=== PATIENT | male | born 1985 | race Caucasian/White ===

== ENCOUNTER 2024-08-01 09:14 | Observation (INO) | payer OTHER, SELFPAY ==
[2024-08-01] VITALS (42 sets, daily range): BP systolic 106–175; BP diastolic 72–139; PULSE 109–155; RESP 10–37; TEMP 36.3; O2SAT 89–96
--- NOTE | 2024-08-01 09:15 | RT.EKG_ITS ---
APPROVED REPORT Exam: Resting ECG Reason for Exam: Tachy Patient Location: E HR:137 bpm ECG Measurements Heart Rate 137 AXIS NM 140 P 57 QRSd 102 QRS 6 QT 301 T 39 QTc 454 Conclusion Sinus tachycardia...rate> 99
--- NOTE | 2024-08-01 09:15 | DI.CT_ITS ---
Exam(s) CT HEAD CERVICAL SPINE WO EXAM: CT HEAD CERVICAL SPINE WO CLINICAL HISTORY: trauma; fall 14 ft ladder-back/chst/abd/neck pain. TECHNIQUE: Imaging Protocol: Axial computed tomography images with coronal and sagittal reformatted images were created and reviewed COMPARISON: No exams were available for comparison FINDINGS: CT Head: Ventricles and Extra axial spaces: Normal in size and morphology for the patient's age. Hemorrhage: None. Cerebral parenchyma: No evidence of an acute territorial infarct or mass effect. Midline shift: None. Brainstem/Cerebellum: Normal. Calvarium: Normal. Visualized Paranasal sinuses/Mastoids: Clear. Soft Tissues: Unremarkable. CT Cervical Spine: There is patient motion artifact. Bones: No acute fracture or subluxation. There is an acute nondisplaced fracture of the posterior asp ect of the right 1st rib. There is a mildly displaced fracture of the posterior aspect of the right 2nd rib. There is a nondisplaced fracture the posterior aspect of the left 2nd rib. There is mild r eversal of the normal cervical lordosis. This may be due to muscle spasm. Soft Tissues: Unremarkable. Lung Apices: Clear. IMPRESSION: 1. No acute intracranial process. 2. The examination is limited due to patient motion artifact. 3. Fractures involving the right 1st and 2nd ribs and the left 2nd rib. 4. Within the limits of the examination, no acute fracture or subluxation in the cervical spine. RADIATION DOSE DELIVERED: 1,389.99mGy.cm Total DLP DATA REPOSITORY: All CT scans at this facility are submitted to the National Radiology Data Registry (NRDR) Dose Index Registry (DIR) with the [employer] (ACR). RADIATION OPTIMIZATION: All CT scans at this facility use at least one of these dose optimization te chniques: automated exposure control; mA and/or kV adjustment per patient size (includes targeted exa ms where dose is matched to clinical indication); or iterative reconstruction.
--- NOTE | 2024-08-01 09:15 | DI.CT_ITS ---
Exam(s) CT CHEST/ABD/PEL W CT THORACIC LUMBAR SPINE REC EXAM: CT CHEST/ABD/PEL W CLINICAL HISTORY: trauma; fall 14 ft ladder-back/chst/abd/neck pain TECHNIQUE: Imaging Protocol: Axial computed tomography images with coronal and sagittal reformatted images were created and reviewed. Lung Computer Aided Detection (CAD) was utilized. CONTRAST MATERIAL: Intravenous: Omnipaque 350 contrast volume:100 mL Oral: No COMPARISON: CT CT THORACIC LUMBAR SPINE REC from 08/01/2024 FINDINGS: CHEST: Tracheobronchial tree: Patent where visualized. No evidence of bronchiectasis. Pulmonary parenchyma: No consolidation or dominant measurable mass. No architectural distortion. Visualized thyroid gland: Unremarkable. Mediastinum and Adeline: No dominant adenopathy or fluid collection. The esophagus is unremarkable. Pleura: No pneumothorax. No right pleural effusion. There is a tiny left pleural effusion. Heart: The heart is not dilated. No coronary artery calcifications are seen. No pericardial effusion. Pulmonary arteries: Due to the timing of the bolus, there is suboptimal opacification of the pulmonar y arteries. No large central pulmonary embolism is seen. Aorta: Thoracic aorta non-dilated. Lymph nodes: Within normal limits. Soft tissues: Gynecomastia bilaterally. Bones:There is a nondisplaced fracture of the posterior aspect of the right 1st rib. There are mildly displaced fracture of the posterior aspects of the right 2nd and 3rd ribs. There is a possible nondi splaced fracture involving the posterior aspect of the right 4th rib. There are old healed right 7th and 8th rib fracture deformities. There is a nondisplaced fracture involving the posterior aspect of the left 3rd 4th and 5th ribs. There is a subacute fracture of the posterior aspect of the left 11th rib. CT thoracic spine recons: No acute fracture or subluxation is seen in the thoracic spine. CT lumbar spine recons: No acute fracture or subluxation is seen in the lumbar spine. ABDOMEN: Liver: Normal density. No measurable mass. Portal, Superior Mesenteric, and Splenic Veins: Unremarkable. Gallbladder and Biliary Tract: No radiodense calculus or dilation. Pancreas: Normal density, no abnormal calcifications or inflammatory process. Spleen: Normal. Adrenals: No masses seen. Kidneys: Normal size, contour and axis. No radiodense stones or obstructive uropathy. No masses seen. Abdominal Aorta: Abdominal portion non-dilated. Bowel: No obstruction or bowel wall thickening. Appendix is unremarkable. Peritoneal Cavity: No ascites, collection or mesenteric inflammatory response. No free air. Lymph Nodes: Within normal limits. Bones: Within normal limits for the patient's age. Soft Tissues: There is a small fat containing right inguinal hernia. There is infiltration of the sof t tissues in the left flank likely reflecting a contusion. PELVIS: Bladder: Symmetric distention, no gross wall thickening. Reproductive Organs: Unremarkable as visualized. Lymph Nodes: Within normal limits. Bones: Within normal limits. IMPRESSION: 1. Bilateral rib fractures. 2. No pneumothorax. 3. Tiny left pleural effusion. 4. No acute fracture or subluxation is seen in the thoracic or lumbar spine. 5. No evidence of abdominal or pelvic organ injury. 6. Small subcutaneous soft tissue confusion overlying the left flank. RADIATION DOSE DELIVERED: 1,442.41mGy.cm Total DLP DATA REPOSITORY: All CT scans at this facility are submitted to the National Radiology Data Registry (NRDR) Dose Index Registry (DIR) with the [employer] (ACR). RADIATION OPTIMIZATION: All CT scans at this facility use at least one of these dose optimization te chniques: automated exposure control; mA and/or kV adjustment per patient size (includes targeted exa ms where dose is matched to clinical indication); or iterative reconstruction.
--- NOTE | 2024-08-01 09:39 | ED.GENADUL_ITS ---
Discharge Plan Disposition Patient Disposition: Admit to [facility] Condition: Stable Discharge Details Clinical Impression: Multiple closed fractures of ribs of both sides Admit Date/Time: 08/01/24 14:17 Admit Provider: Nghia Quach Attending Provider: Nghia Quach Primary Care Provider: None,None ED Provider: Fredy Manzano Discharge Data Discharge Date/Time-TO BE ENTERED AT DEPARTURE: 08/01/24 15:21 HPI <CHRISTIAN Phelan - Last Filed: 08/01/24 16:07> General Date/Time Provider Initiated Documentation: 08/01/24 09:22 . HPI Narrative: 39 year-old male presents to ED today by POV/ambulating with a chief complaint of fall from 14 foot ladder while at work to uneven crushed stone to his back, with onset just prior to arrival. Quality described as lateral neck pain, back pain, ribcage pain, upper abdominal pain, no radiation to known LOC, nausea/vomiting, bleeding, numbness to any extremities- patient walked in, refused C-collar, and walked to CT. Severity is described as 7/10. Palliating factors include nothing specific attempted. Provoking factors include certain movements. Patient not anticoagulated. Related Data Home Medications ?Medication ?Instructions ?Recorded ?Confirmed methadone 10 mg/5 mL oral solution 185 mg PO DAILY 07/2108/01/24 acetaminophen 500 mg tablet 1,000 mg (2 x 500 mg) PO Q ID #0 08/02/24 tabs albuterol sulfate 90 mcg/actuation 2 puff inhalation Q 4H PRN PRN #1 08/02/24 aerosol inhaler (Ventolin HFA) inh cyclobenzaprine 10 mg tablet 10 mg PO TID PRN PRN #30 tabs 08/02/24 naproxen 500 mg tablet 500 mg PO BID #50 tabs 08/02 oxycodone 10 mg tablet 20 mg (2 x 10 mg) PO Q4H PRN PRN 08/02/24 #20 tabs sennosides 8.6 mg-docusate sodium 1 tab PO BID #60 tab s 08/02/24 50 mg tablet (Colace 2-In-1) Previous Rx's ?Medication ?Instructions ?Recorded acetaminophen 500 mg tablet 1,000 mg (2 x 500 mg) PO Q ID #0 08/02/24 tabs albuterol sulfate 90 mcg/actuation 2 puff inhalation Q 4H PRN PRN #1 08/02/24 aerosol inhaler (Ventolin HFA) inh cyclobenzaprine 10 mg tablet 10 mg PO TID PRN PRN #30 tabs 08/02/24 naproxen 500 mg tablet 500 mg PO BID #50 tabs 08/02 oxycodone 10 mg tablet 20 mg (2 x 10 mg) PO Q4H PRN PRN 08/02/24 #20 tabs sennosides 8.6 mg-docusate sodium 1 tab PO BID #60 tab s 08/02/24 50 mg tablet (Colace 2-In-1) Allergies Allergy/AdvReac Type Severity Reaction Status Date / Time No Known Allergies Allergy Unverified 08/01/24 09:20 General Stated Complaint: Trauma RUBY: 2 Review of Systems <CHRISTIAN Phelan - Last Filed: 08/01/24 16:07> All systems reviewed & are unremarkable except as noted in HPI and below Exam <CHRISTIAN Phelan - Last Filed: 08/01/24 16:07> Narrative Exam Narrative: GENERAL APPEARANCE: Well-nourished, non-toxic, awake and alert, moderate acute distress. SKIN: Warm, pink, diaphoretic, intact, without rashes/lesions/ulcerations. HEAD: Normocephalic, atraumatic- no Juarez's sign or periorbital ecchymosis, normal hair distribution for gender/age. EYES: Normal conjunctiva, no exudates on lids/lashes. ENT: Nares patent, no circumoral cyanosis, no facial swelling NECK: Supple, trachea midline, painless cervical ROM, no midline cervical vertebral tenderness/crepitus, L lateral tenderness in trapezius muscles. LUNGS/CHEST: Lungs CTA bilaterally- no focally diminshed or absent lung sounds, non-labored respirations, normal A/P diameter, symmetrical expansion, no chest wall deformity, no flail segment or paradoxical motion- diffuse severe tenderness to ribcage bilatearlly with crepitus in bilateral upper ribs posteriorly HEART (CV/PV): Regular rate and rhythm without murmur, no peripheral edema, no JVD. ABDOMEN: Soft, non-distended, no guarding, epigastric tenderness, no ecchymosis/rigidity. MSK: Normal ROM, no swelling/deformity to bilateral UEs or LEs, moving all extremities without weakness, no cyanosis, spine midline with tenderness without crepitus/step-offs, focally more paraspinal in upper thoracic bilaterally. NEURO: Mental Status AAOx4 - alert to person, place, time, events No facial droop, no forehead involvement, no cerebellar signs with FNF/heel-mccormick Motor: No focal weakness - strength 5/5 in bilateral UEs and LEs, proximal and distal, symmetric. Sensory: sensation intact to light touch globally. Gait normal: patient ambulated without ataxia into ED room. PSYCH: euthymic, cooperative, pleasant, appropriate speech Course <CHRISTIAN Phelan - Last Filed: 08/01/24 16:07> Vital Signs Vital signs: Vital Signs Pulse 154 H 08/01/24 09:17 Respiratory Rate 20 08/01/24 09:17 Blood Pressure 159/103 H 08/01/24 09:17 Pulse Oximetry 94 08/01/24 09:17 Pulse 154 H 08/01/24 09:17 Respiratory Rate 20 08/01/24 09:17 Blood Pressure 159/103 H 08/01/24 09:17 Blood Pressure Position Sitting 08/01/24 09:17 Pulse Oximetry 94 08/01/24 09:17 Oxygen Delivery Method Room Air 08/01/24 09:17 Oxygen Flow Rate 0 08/01/24 09:17 Pain Level 7 08/01/24 09:17 Medical Decision Making <CHRISTIAN Phelan - Last Filed: 08/01/24 16:07> This dictation utilizes [id number] dictation software and may contain unedited grammatical errors. 39 year-old male presents to ED today by POV/ambulating with a chief complaint of fall from 14 foot ladder while at work to uneven crushed stone to his back, with onset just prior to arrival. Quality described as lateral neck pain, back pain, ribcage pain, upper abdominal pain, no radiation to known LOC, nausea/vomiting, bleeding, numbness to any extremities- patient walked in, refused C-collar, and walked to CT. Severity is described as 09/05. Palliating factors include nothing specific attempted. Provoking factors include certain movements.. Patients' medical history: Daily methadone patient. Family and social history: Denies current active drug use, denies alcohol use, works in construction. Pertinent exam findings / vital signs include [ ]. Differential / pathologies of concern include [ ]. Diagnostic studies of: -CBC, CMP, lipase, serial troponins, PT/PTT, lactate, type and screen, EKG, CT head, CT C/T/L-spine, CT chest abdomen pelvis. -CT shows 4 R rib fractures - 1st, 2nd, 3rd, and likely 4th- 2nd and 3rd being displaced. L side ribcage shows 4 contigious rib fractures (2nd, 3rd, 4th, 5th - all non-displaced), and 11th rib fx nondisplaced, with small L pleural effusion- likely hemothorax. -Labs show WBCs 26, likely secondary to trauma, lactate elevated secondary to trauma Interventions of: -1g IV Tylenol, 1mg hydromorphone IVP x2 Q2hr at this point (1105), patient is a high-dose daily methadone patient, will like need substantial complex pain control. -Consulted with Dr. Fernández, he will manage pulmonary complicatons, acknowledge small effusion likely hemothorax, may need repeat short interval imaging. -Consulted with Dr. Quach of hospitalist service for admission- accepted at 1130. ED Course/Assessment/Plan: 39-year-old male had a 14 foot fall through his back landing on uneven crushed stone at a construction site, he fell off a ladder. He has significant chest and upper abdominal pain and back pain, he was tacky to 150s on arrival but walking and refusing c-collar despite having lateral left neck pain, he ambulated to [place] and back. His CT scan shows multiple bilateral rib fractures as described above and are likely small left hemothorax needing short interval imaging follow-up. I spoke with the surgeon on-call as well as hospitalist and they have admitted to [facility] for pain control and monitoring, he received a gram of Tylenol and 2 mg of hydromorphone so far, I did hold ketorolac while awaiting CT scan results as to not increase bleeding risk, this could be added from the inpatient setting. Findings not consistent with tension pneumo/hemothorax, pericardial effusion, ICH, vertebral fractures. Disposition of Multiple closed fractures of ribs of both sides. Patient verbalized understanding of the plan and return to ED criteria and engaged in shared decision making. Medical Records Medical records reviewed: Yes I reviewed the patient's medical records. Imaging Data Radiologic Study: Attestation: I personally reviewed and interpreted this imaging study as follows: Imaging: CT Scan Radiologist's impression: EXAM: CT HEAD CERVICAL SPINE WO CLINICAL HISTORY: trauma; fall 14 ft ladder-back/chst/abd/neck pain. TECHNIQUE: Imaging Protocol: Axial computed tomography images with coronal and sagittal reformatted images were created and reviewed COMPARISON: No exams were available for comparison FINDINGS: CT Head: Ventricles and Extra axial spaces: Normal in size and morphology for the patient's age. Hemorrhage: None. Cerebral parenchyma: No evidence of an acute territorial infarct or mass effect. Midline shift: None. Brainstem/Cerebellum: Normal. Calvarium: Normal. Visualized Paranasal sinuses/Mastoids: Clear. Soft Tissues: Unremarkable. CT Cervical Spine: There is patient motion artifact. Bones: No acute fracture or subluxation. There is an acute nondisplaced fracture of the posterior aspect of the right 1st rib. There is a mildly displaced fracture of the posterior aspect of the right 2nd rib. There is a nondisplaced fracture the posterior aspect of the left 2nd rib. There is mild reversal of the normal cervical lordosis. This may be due to muscle spasm. Soft Tissues: Unremarkable. Lung Apices: Clear. IMPRESSION: 1. No acute intracranial process. 2. The examination is limited due to patient motion artifact. 3. Fractures involving the right 1st and 2nd ribs and the left 2nd rib. 4. Within the limits of the examination, no acute fracture or subluxation in the cervical spine. Radiologic Study #2: Attestation: I personally reviewed and interpreted this imaging study as follows: Imaging: CT Scan Radiologist's impression: EXAM: CT CHEST/ABD/PEL W CLINICAL HISTORY: trauma; fall 14 ft ladder-back/chst/abd/neck pain TECHNIQUE: Imaging Protocol: Axial computed tomography images with coronal and sagittal reformatted images were created and reviewed. Lung Computer Aided Detection (CAD) was utilized. CONTRAST MATERIAL: Intravenous: Omnipaque 350 contrast volume:100 mL Oral: No COMPARISON: CT CT THORACIC LUMBAR SPINE REC from 08/01/2024 FINDINGS: CHEST: Tracheobronchial tree: Patent where visualized. No evidence of bronchiectasis. Pulmonary parenchyma: No consolidation or dominant measurable mass. No architectural distortion. Visualized thyroid gland: Unremarkable. Mediastinum and Daeline: No dominant adenopathy or fluid collection. The esophagus is unremarkable. Pleura: No pneumothorax. No right pleural effusion. There is a tiny left pleural effusion. Heart: The heart is not dilated. No coronary artery calcifications are seen. No pericardial effusion. Pulmonary arteries: Due to the timing of the bolus, there is suboptimal opacification of the pulmonary arteries. No large central pulmonary embolism is seen. Aorta: Thoracic aorta non-dilated. Lymph nodes: Within normal limits. Soft tissues: Gynecomastia bilaterally. Bones:There is a nondisplaced fracture of the posterior aspect of the right 1st rib. There are mildly displaced fracture of the posterior aspects of the right 2nd and 3rd ribs. There is a possible nondisplaced fracture involving the posterior aspect of the right 4th rib. There are old healed right 7th and 8th rib fracture deformities. There is a nondisplaced fracture involving the posterior aspect of the left 3rd 4th and 5th ribs. There is a subacute fracture of the posterior aspect of the left 11th rib. CT thoracic spine recons: No acute fracture or subluxation is seen in the thoracic spine. CT lumbar spine recons: No acute fracture or subluxation is seen in the lumbar spine. ABDOMEN: Liver: Normal density. No measurable mass. Portal, Superior Mesenteric, and Splenic Veins: Unremarkable. Gallbladder and Biliary Tract: No radiodense calculus or dilation. Pancreas: Normal density, no abnormal calcifications or inflammatory process. Spleen: Normal. Adrenals: No masses seen. Kidneys: Normal size, contour and axis. No radiodense stones or obstructive uropathy. No masses seen. Abdominal Aorta: Abdominal portion non-dilated. Bowel: No obstruction or bowel wall thickening. Appendix is unremarkable. Peritoneal Cavity: No ascites, collection or mesenteric inflammatory response. No free air. Lymph Nodes: Within normal limits. Bones: Within normal limits for the patient's age. Soft Tissues: There is a small fat containing right inguinal hernia. There is infiltration of the soft tissues in the left flank likely reflecting a contusion. PELVIS: Bladder: Symmetric distention, no gross wall thickening. Reproductive Organs: Unremarkable as visualized. Lymph Nodes: Within normal limits. Bones: Within normal limits. IMPRESSION: 1. Bilateral rib fractures. 2. No pneumothorax. 3. Tiny left pleural effusion. 4. No acute fracture or subluxation is seen in the thoracic or lumbar spine. 5. No evidence of abdominal or pelvic organ injury. 6. Small subcutaneous soft tissue confusion overlying the left flank. Lab Data Lab results reviewed: Yes I reviewed the patient's lab results. Labs: Laboratory Tests Range/Units 08/01/24 08/01/24 09:30 10:30 WBC (4.4-10.8) 10^3/uL 26.24 H* RBC (4.36-5.78) 10^6/uL 5.17 Hgb (13.5-17.5) g/dL 15.7 Hct (40.0-50.0) % 47.4 MCV (80-95) fL 92 MCH (27.0-33.0) pg 30.4 MCHC (32.0-36.0) % 33.1 RDW (11.8-14.1) % 12.9 Plt Count (130-400) 10^3/uL 324 MPV (8.0-11.0) fL 10.0 Immature Gran % % 1.5 Neutrophils % % 82.5 Lymphocytes % % 8.6 Monocytes % % 6.7 Eosinophils % % 0.2 Basophils % % 0.5 Nucleated RBC % (0.0-0.3) % 0.0 Absolute Neutrophils (1.2-6.7) 10^3/uL 21.65 H Absolute Lymphocytes (1.2-3.4) 10^3/uL 2.26 Absolute Monocytes (0.1-0.8) 10^3/uL 1.76 H Absolute Eosinophils (0.0-0.7) 10^3/uL 0.05 Absolute Basophils (0.0-0.2) 10^3/uL 0.13 RBC Morphology Normal PT (9.1-11.1) sec 10.8 INR (0.9-1.1) 1.1 APTT (20.6-30.2) sec 24.1 VBG Lactate (<or=2.0) mmol/L 3.3 H* Sodium (136-145) mmol/L 136 Potassium (3.5-5.1) mmol/L 4.0 Chloride (98-107) mmol/L 97 L Carbon Dioxide (21.0-32.0) mmol/L 28.8 Anion Gap (3-11) mmol/L 10.2 BUN (7-18) mg/dL 8 Creatinine (0.70-1.30) mg/dL 1.2 Est GFR (CKD-EPI 2020) (mL/min/1.73m2) 77.92 Glucose (74-106) mg/dL 147 H Calcium (8.5-10.1) mg/dL 9.4 Total Bilirubin (0.2-1.0) mg/dL 0.5 AST (15-37) U/L 45 H ALT (16-63) U/L 35 Alkaline Phosphatase (46-116) U/L 155 H Troponin I (<or=76) ng/L 8 8 Total Protein (6.4-8.2) g/dL 9.3 H Albumin (3.4-5.0) g/dL 3.9 Lipase (<78) U/L 31 ABO/Rh A Positive Antibody Screen NEGATIVE <Rd Cleveland MD - Last Filed: 08/09/24 07:34> Date: 08/01/24 Time: 12:46 Note: I evaluated the patient with CHRISTIAN Manzano. I agree with treatment plan as documented. Plan to hospitalize for treatment of rib fractures and small hemothorax. Surgery has been consulted and has evaluated the patient. Patient to be admitted to the hospitalist service. PFSH <CHRISTIAN Phelan - Last Filed: 08/01/24 16:07> All Active Problems (Updated 08/03/24 @ 00:00 by ELVI TORIBIO) Asthma (Chronic) Wrist pain, left (Acute) Pleural effusion (Acute) Smoker (Acute) Opioid use disorder, severe, on maintenance therapy (Acute) Multiple closed fractures of ribs of both sides (Acute) Medical History (Updated 08/03/24 @ 00:00 by ELVI TORIBIO) BMI 40.0-44.9, adult Surgical History (Updated 08/01/24 @ 18:12 by Nghia Quach) H/O umbilical hernia repair Social History (Updated 08/01/24 @ 18:13 by Nghia Quach) Smoking/Tobacco Use Status: Current every day Tobacco Type: cigarettes and e- cigarettes Tobacco: How many years used: 28 Smoking risk assessment performed?: Yes Alcohol Intake: current Alcohol Intake frequency: a few times a month Drug use: Current Sobriety Substance use type: former substance user Details: on Methadone Housing: apartment Do you feel safe at home: Yes Do you feel safe in your relationship?: Yes Additional Social history: Lives with mom/step dad, GF at times. Works at [employer]. Formerly incarcerated.
[2024-08-01 09:40] LABS: Lactate 3.3 mmol/L (<or=2.0)
[2024-08-01 09:42] LABS: Absolute Monocyte Count 1.76 10^3/uL (0.1-0.8); Basophils % 0.5 %; Eosinophils % 0.2 %; HCT 47.4 % (40.0-50.0); HGB 15.7 g/dL (13.5-17.5); Immature Grans % 1.5 %; Lymphocytes % 8.6 %; MCH 30.4 pg (27.0-33.0); MCHC 33.1 % (32.0-36.0); MCV 92 fL (80-95); Monocytes % 6.7 %; Neutrophils % 82.5 %; Platelet Count 324 10^3/uL (130-400); RBC 5.17 10^6/uL (4.36-5.78); RDW 12.9 % (11.8-14.1)
[2024-08-01 09:47] LABS: Absolute Basophil Count 0.13 10^3/uL (0.0-0.2); Absolute Eosinophil Count 0.05 10^3/uL (0.0-0.7); Absolute Lymphocyte Count 2.26 10^3/uL (1.2-3.4); Absolute Neutrophil Count 21.65 10^3/uL (1.2-6.7)
[2024-08-01 09:48] LABS: WBC 26.24 10^3/uL (4.4-10.8)
[2024-08-01] MEDS: Normal Saline - Diluent 50 ML VIAL IJ (09:58)
[2024-08-01 10:00] LABS: INR 1.1 (0.9-1.1); PTT Activated 24.1 sec (20.6-30.2); Prothrombin Time 10.8 sec (9.1-11.1)
[2024-08-01] MEDS: Omnipaque 350 MG/ML 100 ML BTL IJ (10:00)
[2024-08-01 10:03] LABS: ALT 35 U/L (16-63); AST 45 U/L (15-37); Albumin 3.9 g/dL (3.4-5.0); Alkaline Phosphatase 155 U/L (46-116); Anion Gap 10.2 mmol/L (3-11); BUN 8 mg/dL (7-18); Bilirubin, Total 0.5 mg/dL (0.2-1.0); CO2 28.8 mmol/L (21.0-32.0); CREATININE 1.2 mg/dL (0.70-1.30); Calcium 9.4 mg/dL (8.5-10.1); Chloride 97 mmol/L (98-107); Diff Comment Diff Reviewed; Estimated GFR 77.92 (mL/min/1.73m2); Glucose 147 mg/dL (74-106); Lipase 31 U/L (<78); RBC Morphology Normal; Sodium 136 mmol/L (136-145); Total Protein 9.3 g/dL (6.4-8.2); Troponin I 8 ng/L (<or=76)
[2024-08-01] MEDS: ACETAMINOPHEN 1,000 MG/100 ML BTL 400 MG IVPB (10:10)
[2024-08-01] MEDS: HYDROmorphone 2 MG/ML SYR 1 MG IVP ×2 (10:10→11:32)
[2024-08-01] MEDS: Normal Saline 500 ML IV (10:10)
[2024-08-01 10:59] LABS: Troponin I 8 ng/L (<or=76)
--- NOTE | 2024-08-01 11:06 | W.SURGCON ---
Date of service: 08/01/24 Time of Service: 11:06 Assessment and Plan Assessment and plan (1) Multiple closed fractures of ribs of both sides: Status: Acute Assessment and plan: 39-year-old man with bilateral rib fractures sustained after a fall. There was no loss of consciousness and he did not hit his head. He has no pneumothorax although there may be a very small hemothorax possibly. He is hemodynamically stable although he is in significant pain. Pain management for him is going to be a challenge considering the baseline amounts of methadone he is on. He is neuro?vascular intact with no evidence of injury outside of the rib fractures. Recommendations: I agree with admission to the hospitalist service for pain management Chest x-ray tomorrow Incentive spirometry, pulmonary toilet, respiratory therapy assistance Analgesia is going to be the mainstay of his management DVT prophylaxis tomorrow as long as no increase in the small hemothorax. Surgery will follow along for a tertiary survey tomorrow. History of Present Illness Narrative: 39-year-old man fell about 12 feet he estimates off of the ladder. He landed on his back on a [place] ground. His pain is in his left hip area and his left chest area. Taking deep breaths is uncomfortable and sore but he is otherwise fine. He has a history of opioid use and takes large amounts of methadone daily. PFSH All Active Problems (Updated 08/01/24 @ 11:13 by CHRISTIAN Phelan) Multiple closed fractures of ribs of both sides (Acute) Social History Smoking/Tobacco Use Status: Current every day Tobacco Type: cigarettes Smoking risk assessment performed?: Yes Alcohol Intake: current Alcohol Intake frequency: 0-2 drinks per day Drug use: Current Sobriety Substance use type: former substance user Details: on Methadone Housing: apartment Do you feel safe at home: Yes Do you feel safe in your relationship?: Yes Exam Narrative Exam Narrative: Gen: Non-toxic, interactive and able to converse but clearly in some pain. Neuro: Alert and oriented x3, cranial nerves II through XII are grossly intact. Sensation and motor is intact in all 4 extremities. Psych: Good mood and affect. Good insight and understanding into condition. Chest: Non-labored breathing, no wheezing, no visible shortness of breath. Taking deep breaths clearly causes pain. There is no crepitus. His breath sounds are present bilateral. Heart: Regular Head: No evidence of trauma. Neck: Non-tender Abdomen: Soft, no distention, not tender. Extremities: Free range of motion x 4. He is morbidly obese and there is no visible soft tissue or skeletal injury appreciated despite the sore hip. Results Last Vital Signs Pulse 138 H 08/01/24 10:01 Resp 16 08/01/24 10:01 BP 151/104 H 08/01/24 10:00 Pulse Ox 95 08/01/24 10:01 Labs 08/01/24 09:30 08/01/24 09:30 Labs: Laboratory Results - last 24 hr 08/01/24 08/01/24 09:30 10:30 WBC 26.24 H* RBC 5.17 Hgb 15.7 Hct 47.4 MCV 92 MCH 30.4 MCHC 33.1 RDW 12.9 Plt Count 324 MPV 10.0 Immature Gran % 1.5 Neutrophils % 82.5 Lymphocytes % 8.6 Monocytes % 6.7 Eosinophils % 0.2 Basophils % 0.5 Nucleated RBC % 0.0 Absolute Neutrophils 21.65 H Absolute Lymphocytes 2.26 Absolute Monocytes 1.76 H Absolute Eosinophils 0.05 Absolute Basophils 0.13 RBC Morphology Normal PT 10.8 INR 1.1 APTT 24.1 VBG Lactate 3.3 H* Sodium 136 Potassium 4.0 Chloride 97 L Carbon Dioxide 28.8 Anion Gap 10.2 BUN 8 Creatinine 1.2 Est GFR (CKD-EPI 2020) 77.92 Glucose 147 H Calcium 9.4 Total Bilirubin 0.5 AST 45 H ALT 35 Alkaline Phosphatase 155 H Troponin I 8 8 Total Protein 9.3 H Albumin 3.9 Lipase 31 ABO/Rh A Positive Antibody Screen NEGATIVE
[2024-08-01] MEDS: Lidocaine 5% Patch 1 PATCH TP (11:32)
--- NOTE | 2024-08-01 15:14 | W.PC.ACHO ---
Registration Status: Primary Language: Preferred Language: ED Information & Data Chief Complaint Trauma 08/01/24 09:56 Chief Complaint Trauma 08/01/24 09:40 Triage Note 1 hr ago pt at work and fell 08/01/24 09:17 approx 14 feet off a ladder landing on crushed rock on his back. Denies LOC, reports left side hip/back/ arm pain. States he layed there for 20 minutes before he could get up. Most Recent Vital Signs Pulse 109 H 08/01/24 14:41 Pulse 115 H 08/01/24 15:00 Respiratory Rate 20 08/01/24 15:00 Respiratory Effort Short of Breath 08/01/24 09:56 Respiratory Depth Shallow 08/01/24 09:56 Respiratory Pattern Normal 08/01/24 09:56 Blood Pressure 169/90 H 08/01/24 10:16 Blood Pressure Mean 118 08/01/24 10:16 Blood Pressure Position Sitting 08/01/24 09:17 Pulse Oximetry 93 08/01/24 14:41 Oxygen Delivery Method Room Air 08/01/24 09:17 Oxygen Flow Rate 0 08/01/24 09:17 Pain Level 9 08/01/24 11:32 Comment 4L 08/01/24 10:01 Allergies No Known Allergies Allergy (Unverified 08/01/24 09:20) Precautions Isolation Standard precaution 08/01/24 09:56 Active Medications Generic Name Dose Route Start Last Admin Trade Name Freq PRN Reason Stop Dose Admin Iohexol 100 ml 08/01/24 10:00 08/01/24 10:00 Omnipaque 350 Mg/Ml 100 Ml Btl IJ 08/31/24 23:59 100 ml DIRECTED REGIS Administration Lidocaine 1 patch 08/01/24 11:15 08/01/24 11:32 Lidocaine 5% Patch TP 1 patch Q24H REGIS Administration Sodium Chloride 50 ml 08/01/24 10:00 08/01/24 09:58 Normal Saline - Diluent 50 Ml Vial IJ 50 ml .FOR DI USE REGIS Administration IV IV Catheter Type [Right Peripheral IV Forearm] IV Catheter Gauge [Right 18 Forearm] Diet Orders Category Date Time Status Regular/Normal [DIET] Nutrition 08/01/24 Dinner Active Diagnostics 08/01/24 08/01/24 Range/Units 10:30 09:30 WBC 26.24 H* (4.4-10.8) 10^3/uL RBC 5.17 (4.36-5.78) 10^6/uL Hgb 15.7 (13.5-17.5) g/dL Hct 47.4 (40.0-50.0) % MCV 92 (80-95) fL MCH 30.4 (27.0-33.0) pg MCHC 33.1 (32.0-36.0) % RDW 12.9 (11.8-14.1) % Plt Count 324 (130-400) 10^3/uL MPV 10.0 (8.0-11.0) fL Immature Gran % 1.5 % Neutrophils % 82.5 % Lymphocytes % 8.6 % Monocytes % 6.7 % Eosinophils % 0.2 % Basophils % 0.5 % Nucleated RBC % 0.0 (0.0-0.3) % Absolute Neutrophils 21.65 H (1.2-6.7) 10^3/uL Absolute Lymphocytes 2.26 (1.2-3.4) 10^3/uL Absolute Monocytes 1.76 H (0.1-0.8) 10^3/uL Absolute Eosinophils 0.05 (0.0-0.7) 10^3/uL Absolute Basophils 0.13 (0.0-0.2) 10^3/uL RBC Morphology Normal PT 10.8 (9.1-11.1) sec INR 1.1 (0.9-1.1) APTT 24.1 (20.6-30.2) sec VBG Lactate 3.3 H* (<or=2.0) mmol/L Sodium 136 (136-145) mmol/L Potassium 4.0 (3.5-5.1) mmol/L Chloride 97 L (98-107) mmol/L Carbon Dioxide 28.8 (21.0-32.0) mmol/L Anion Gap 10.2 (3-11) mmol/L BUN 8 (7-18) mg/dL Creatinine 1.2 (0.70-1.30) mg/dL Est GFR (CKD-EPI 2020) 77.92 (mL/min/1.73m2) Glucose 147 H (74-106) mg/dL Calcium 9.4 (8.5-10.1) mg/dL Total Bilirubin 0.5 (0.2-1.0) mg/dL AST 45 H (15-37) U/L ALT 35 (16-63) U/L Alkaline Phosphatase 155 H (46-116) U/L Troponin I 8 8 (<or=76) ng/L Total Protein 9.3 H (6.4-8.2) g/dL Albumin 3.9 (3.4-5.0) g/dL Lipase 31 (<78) U/L ABO/Rh A Positive Antibody Screen NEGATIVE Intake and Output - 24 Hour Total 08/01/24 09:14 thru 08/01/24 10:30 Intake Total 600 Balance 600 Weight 136.078 kg Intake: IV 600 Falls Risk Assessment History of Falls Admit Due to Fall 08/01/24 09:56 Contributing Factors No Factors 08/01/24 09:56 Ambulatory Aids Independent 08/01/24 09:56 Tubes/Lines None 08/01/24 09:56 Gait Evaluation No gait disturbance 08/01/24 09:56 Cognition No cognitive impairment 08/01/24 09:56 Fall Total Score 08/01/24 09:56 Level of Risk Moderate Risk 08/01/24 09:56 Problems Multiple closed fractures of ribs of both sides (Acute) v v v v v v v v v Sending and/or Receiving Nurses: Please use comment section below to note any information pertinent to the patient hand-off not included above. Information / Comments: A&O x4, able to make needs known, requests nicotine patch, on methadone, smokes 1pk a day, fall w/trauma at work fell 14+ feet onto the ground, multiple rib fx, small hemothorax possible splenic lac, 18G RFA, voiding Report received from: Ana [employer]CH[employer]IC at 1302
[2024-08-01] MEDS: HYDROmorphone 2 MG/ML SYR IVP ×2 (15:31→19:59)
[2024-08-01] MEDS: Nicotine 21 MG/24 HR PATCH TD (17:03)
[2024-08-01] MEDS: oxyCODONE 15 MG TAB PO (17:03)
--- NOTE | 2024-08-01 17:23 | W.PM.HP.N ---
Date of service: 08/01/24 Time of Service: 17:24 Assessment and Plan Assessment and plan (1) Multiple closed fractures of ribs of both sides: Status: Acute Assessment and plan: With significant pain requring IV therapy. No flail chest, but concern for hemothorax as below. I agree with admission given this and severity of pain. Chest PT/IS as per surgery. He is at high risk for developing pneumonia. Pain not controlled currently. Add ketoralac, cyclobenzaprine, and schedule APAP. Increase oxycodone dose to 20mg prn, also 2mg IV hydromorphone as 1mg not working well with tolerance. (2) Pleural effusion: Status: Acute Assessment and plan: Some concern for hemothorax per surgery. Repeat CXR ordered for AM to follow. (3) Elevated WBCs: Status: Acute Assessment and plan: Elevated WBC and lactate c/w acute stress. I don't see signs of infection. Follow both in AM, reconsider if not improving. (4) Opioid use disorder, severe, on maintenance therapy: Status: Acute Assessment and plan: Continue outpatient methadone. With his tolerance we will need high doses of opioids for pain management. (5) Smoker: Status: Acute Assessment and plan: NRT prn, encourage cessation. he is precontemplative now. (6) Wrist pain, left: Status: Acute Assessment and plan: Get XR, splint for comfort even if XR negative. can also ICE. (7) Asthma: Status: Chronic Assessment and plan: H/o asthma, states he takes what he thinks is Advair (round purple inhaler) along with prn albuterol. Will Rx. RT consult ordered as well. Mildly hypoxic, related to splinting, continue to monitor. He may also have MAYANK per his history. (8) BMI 40.0-44.9, adult: Assessment and plan: Describes weight gain a/w methadone use, discussed, f/u with PCP. (9) DVT prophylaxis: Status: Acute Assessment and plan: SCDs for now given concern for possible bleeding into chest. Ambulate. History of Present Illness History of Present Illness Chief Complaint: fall, chest wall pain Narrative: 39 yo M with h/o opioid use disorder on methadone, smoking, who fell off 14 foot ladder today on his back while at work at [employer]. He fell on left arm and flat of back. He did not hit his head or loose conciousness. He did not want to come in, but pain has been so severe it is hard to breath. Pain is worse in mid back, also feels around to his chest when he breathes with sharp pleuritic pain. Pain also goes up to his neck. He describes waves of more severe tightening pain in his mid back when it feels like he can't breath. 1mg hydromorphone in ED and 15mg oxycodone and IV acetaminophen have had minimal impact, which he attributes to methadone. He had CT Head-pelvis and thoracic/lumbar spinal CTs in the ED. Surgery consulted for rib fractures, recommending follow up with CXR for small effusion vs hemothorax. Review of Systems All systems reviewed & are unremarkable except as noted in HPI and below Constitutional Constitutional: Reports snoring Respiratory Respiratory: Reports pain on inspiration and Reports snoring Comments: chronic loud breathing/gasping at night. PFSH All Active Problems (Updated 08/01/24 @ 18:20 by Nghia Quach) Asthma (Chronic) Wrist pain, left (Acute) Elevated WBCs (Acute) Pleural effusion (Acute) DVT prophylaxis (Acute) Smoker (Acute) Opioid use disorder, severe, on maintenance therapy (Acute) Multiple closed fractures of ribs of both sides (Acute) Medical History (Updated 08/01/24 @ 18:20 by Nghia Quach) BMI 40.0-44.9, adult Surgical History (Updated 08/01/24 @ 18:12 by Nghia Quach) H/O umbilical hernia repair Social History (Updated 08/01/24 @ 18:13 by Nghia Quach) Smoking/Tobacco Use Status: Current every day Tobacco Type: cigarettes Smoking risk assessment performed?: Yes Alcohol Intake: current Alcohol Intake frequency: a few times a month Drug use: Current Sobriety Substance use type: former substance user Details: on Methadone Housing: apartment Do you feel safe at home: Yes Do you feel safe in your relationship?: Yes Additional Social history: Lives with mom/step dad, GF at times. Works at [employer]. Formerly incarcerated. Meds Allergies and Home Medications Allergies Allergy/AdvReac Type Severity Reaction Status Date / Time No Known Allergies Allergy Unverified 08/01/24 09:20 Home Medications ?Medication ?Instructions ?Recorded ?Confirmed ?Type methadone 10 mg/5 mL oral solution 185 mg PO DAILY 08/01/24 08/01/24 History Exam Narrative Exam Narrative: GEN: Alert and oriented x 4, sitting on side of bed leaning over holding pillow to chest, uncomfortable but cooperative, gives linear history. HEENT: Head atraumatic. Conjunctiva clear, no icterus. PEERL, EOMI. no rhinorrhea. MMM, OP benign. Neck is supple with no masses or lymphadenopathy, trachea midline, some tightness and tenderness posteriorly in neck. LUNGS: CTAB with normal effort, no wheeze CV: regular, tachycardic, with no murmurs, gallops, or rubs. ABD: active bowel sounds, soft, nontender and nondistended. No masses. EXT: no cyanosis, clubbing, or edema. Tender left wrist, mildly on radial side but more on ulnar with some brusing and swelling. No pain with ROM elbows. Limited abduction shoulders to 90 deg with pain but symmetric. LE appear normal. MSK: No joint redness or swelling except left wrist as above. Tender along spine thoracic paraspinal muscles. NEURO: CN 2-12 grossly intact. Intact movement and sensation to light touch of 4 extremities, though less strength on left wrist/hand with pain. Normal speech and coordination. No tremor SKIN: No rashes or open wounds. PSYCH: anxious mood and affect, normal thought process, but clearly in pain Results Imaging Abdomen CT scan report/results: report reviewed CT scan - chest: report reviewed CT scan - pelvis: report reviewed Imaging Studies: CT thoracic/lumbar spine: 1. Bilateral rib fractures. 2. No pneumothorax. 3. Tiny left pleural effusion. 4. No acute fracture or subluxation is seen in the thoracic or lumbar spine. 5. No evidence of abdominal or pelvic organ injury. 6. Small subcutaneous soft tissue confusion overlying the left flank. CT Head/cervical spine: 1. No acute intracranial process. 2. The examination is limited due to patient motion artifact. 3. Fractures involving the right 1st and 2nd ribs and the left 2nd rib. 4. Within the limits of the examination, no acute fracture or subluxation in the cervical spine. CT C/A/P: 1. Bilateral rib fractures. 2. No pneumothorax. 3. Tiny left pleural effusion. 4. No acute fracture or subluxation is seen in the thoracic or lumbar spine. 5. No evidence of abdominal or pelvic organ injury. 6. Small subcutaneous soft tissue confusion overlying the left flank. Labs 08/01/24 09:30 08/01/24 09:30 Labs: Laboratory Results - last 24 hr 08/01/24 08/01/24 09:30 10:30 WBC 26.24 H* RBC 5.17 Hgb 15.7 Hct 47.4 MCV 92 MCH 30.4 MCHC 33.1 RDW 12.9 Plt Count 324 MPV 10.0 Immature Gran % 1.5 Neutrophils % 82.5 Lymphocytes % 8.6 Monocytes % 6.7 Eosinophils % 0.2 Basophils % 0.5 Nucleated RBC % 0.0 Absolute Neutrophils 21.65 H Absolute Lymphocytes 2.26 Absolute Monocytes 1.76 H Absolute Eosinophils 0.05 Absolute Basophils 0.13 RBC Morphology Normal PT 10.8 INR 1.1 APTT 24.1 VBG Lactate 3.3 H* Sodium 136 Potassium 4.0 Chloride 97 L Carbon Dioxide 28.8 Anion Gap 10.2 BUN 8 Creatinine 1.2 Est GFR (CKD-EPI 2020) 77.92 Glucose 147 H Calcium 9.4 Total Bilirubin 0.5 AST 45 H ALT 35 Alkaline Phosphatase 155 H Troponin I 8 8 Total Protein 9.3 H Albumin 3.9 Lipase 31 ABO/Rh A Positive Antibody Screen NEGATIVE Last Vital Signs Temp 36.3 C L 08/01/24 15:19 Pulse 114 H 08/01/24 15:19 Resp 24 08/01/24 15:19 BP 106/91 H 08/01/24 15:19 Pulse Ox 93 08/01/24 15:19 Time Spent Time spent with Patient: 55-74 minutes Time was spent: preparing to see the patient(eg.review tests), obtaining and/or reviewing separately otained hiistory, ordering medications,tests, procedures, referring, communicating with other health health care consultant, indepentently interpreting results, counseling the patient and care coordination
--- NOTE | 2024-08-01 18:16 | RESPIRATORY ---
08/01/2024 Approx. 1630 Attempted to do IS with patient, patient is just getting up to go to shower, cannot do IS at this time. Patient is clearly in alot of pain, this RT explained splinting to patient. 1817 Called M/S desk to ask if they could let this patient's nurse know to start IS with patient because RT is busy in ED at this time.
--- NOTE | 2024-08-01 19:51 | DI.RAD_ITS ---
Exam(s) XR WRIST LT COMPLETE EXAM: XR WRIST LT COMPLETE CLINICAL HISTORY: fall with tenderness and swelling left wrist. TECHNIQUE: 2D digital imaging was performed. COMPARISON: No exams were available for comparison FINDINGS: 3 views There is no evidence of fracture of distal radius and ulna. scaphoid and scapholunate distance appea r unremarkable. however, the dorsal aspect of the wrist there is a bony fragment seen on the lateral view which measures 3 by 1.5 mm. suspect triquetrum fracture. IMPRESSION: Findings suspicious for fracture of the triquetrum bone DATA REPOSITORY: RADIATION DOSE DELIVERED:
[2024-08-01] MEDS: Acetaminophen 500 MG TAB 1000 MG PO (19:59)
[2024-08-01] MEDS: Sennosides/Docusate Sodium TAB 1 TAB PO (19:59)
--- NOTE | 2024-08-01 20:21 | DI.VRAD_ITS ---
PROCEDURE INFORMATION: Exam: XR Left Wrist Exam date and time: 08/01/2024 7:51 PM Age: 39 years old Clinical indication: Injury or trauma; Work related; Blunt trauma (contusions or hematomas); Injury date: 08/01/24; Fall with tenderness and swelling in left wrist TECHNIQUE: Imaging protocol: Radiologic exam of the left wrist. Views: 3 or more views. COMPARISON: No relevant prior studies available. FINDINGS: Bones/joints: A bony fragment is noted at the dorsal aspect of the wrist. The distal radius and ulna are intact. No dislocation. Soft tissues: Soft tissue swelling is noted around the wrist. IMPRESSION: Suspect fracture of the triquetrum. Dictated and Authenticated by: Marcial Arias MD. Orderin Main Agrawal MD
[2024-08-01] MEDS: oxyCODONE 10 MG TAB 20 MG PO (20:30)
[2024-08-01] MEDS: Cyclobenzaprine 10 MG TAB PO (20:30)
[2024-08-01] MEDS: Budesonide/Formoterol 80/4.5 6.9 GM 60 PUFF INH IH (22:27)
[2024-08-02] MEDS: HYDROmorphone 2 MG/ML SYR IVP ×2 (06:16→10:40)
[2024-08-02 07:16] VITALS: BP 149/103; PULSE 121; RESP 20; TEMP 37; O2SAT 89
[2024-08-02 07:32] LABS: Abs Immature Grans 0.08 10^3/uL (0.0-0.06); Absolute Basophil Count 0.05 10^3/uL (0.0-0.2); Absolute Eosinophil Count 0.21 10^3/uL (0.0-0.7); Absolute Lymphocyte Count 1.41 10^3/uL (1.2-3.4); Absolute Monocyte Count 0.88 10^3/uL (0.1-0.8); Absolute Neutrophil Count 7.17 10^3/uL (1.2-6.7); Basophils % 0.5 %; Eosinophils % 2.1 %; HCT 45.7 % (40.0-50.0); HGB 14.9 g/dL (13.5-17.5); Immature Grans % 0.8 %; Lymphocytes % 14.4 %; MCH 30.4 pg (27.0-33.0); MCHC 32.6 % (32.0-36.0); MCV 93 fL (80-95); MPV 10.1 fL (8.0-11.0); Neutrophils % 73.2 %; Platelet Count 198 10^3/uL (130-400); RDW 13.2 % (11.8-14.1); RDW-SD 45.1 fL
[2024-08-02 07:34] LABS: Lactate 2.2 mmol/L (<or=2.0)
[2024-08-02 07:44] LABS: Anion Gap 7.1 mmol/L (3-11); BUN 8 mg/dL (7-18); CO2 30.9 mmol/L (21.0-32.0); CREATININE 0.9 mg/dL (0.70-1.30); Calcium 8.9 mg/dL (8.5-10.1); Chloride 99 mmol/L (98-107); Estimated GFR 110.04 (mL/min/1.73m2); Glucose 142 mg/dL (74-106); Potassium 3.8 mmol/L (3.5-5.1); Sodium 137 mmol/L (136-145)
[2024-08-02] MEDS: Budesonide/Formoterol 80/4.5 6.9 GM 60 PUFF INH IH (07:54)
[2024-08-02] MEDS: Sennosides/Docusate Sodium TAB 1 TAB PO (08:20)
[2024-08-02] MEDS: Acetaminophen 500 MG TAB 1000 MG PO ×2 (08:20→12:29)
[2024-08-02] MEDS: oxyCODONE 10 MG TAB 20 MG PO (08:20)
[2024-08-02] MEDS: Methadone Liquid 10 MG/ML 185 MG PO (08:21)
--- NOTE | 2024-08-02 09:14 | PDOC.CMIN ---
Date of service: 08/02/24 Time of Service: 09:14 Care Management Initial Assmt Initial Assessment Reason for Hospitalization: Rib fractures, pleural effusion Functional Status/Living Situation Town of Residence: [place] Employment Status: Employed (Contructions ) Advance Directives Advance Directives: Do you have an Advance Directive: N 08/01/24 09:30 AD On File at [facility]: N 08/01/24 09:30 Date Asked 08/01/24 08/01/24 09:30 AD Date Reviewed COLST On File at [facility] COLST Date Scanned Code Status Resuscitation Status Full Code Care Team Visit Care Team Role Provider Type None None Primary Care Provider [facility] STAFF PHYSICIAN Fredy Manzano PA Emergency Provider [employer] Nghia Quach Admit Provider [facility] STAFF PHYSICIAN Attending Provider Social Determinants of Health Screening Social Determinants of health last assessed in clinic: 08/01/24 Will the Patient Participate in the Screening?: Yes Do you worry about having a steady place to live?: no Problems where you live: no known problems In the past 12 months, have you had to go without electric, gas, oil or water in your home?: no Has lack of transportation kept you from medical appointments or from doing things needed for daily living?: no Has anyone in your life made you feel unsafe or unsupported?: no How hard is it for you to pay for the very basics like food, housing, medical care, and heating? Would you say it is:: Not hard at all Do you want help finding or keeping work or a job?: I do not need or want help If for any reason you need help with day-to-day activities such as bathing, preparing meals, shopping, managing finances, etc., do you get the help you need?: I get all the help I need How often do you feel lonely or isolated from those around you?: Never Do you speak a language other than Bolivian at home?: No Does the patient want assistance with any of the above?: No PFSH All Active Problems (Updated 08/01/24 @ 18:20 by Nghia Quach) Asthma (Chronic) Wrist pain, left (Acute) Elevated WBCs (Acute) Pleural effusion (Acute) DVT prophylaxis (Acute) Smoker (Acute) Opioid use disorder, severe, on maintenance therapy (Acute) Multiple closed fractures of ribs of both sides (Acute) Medical History (Updated 08/01/24 @ 18:20 by Nghia Quach) BMI 40.0-44.9, adult Surgical History (Updated 08/01/24 @ 18:12 by Nghia Quach) H/O umbilical hernia repair Social History (Updated 08/01/24 @ 18:13 by Nghia Quach) Smoking/Tobacco Use Status: Current every day Tobacco Type: cigarettes and e-cigarettes Tobacco: How many years used: 28 Smoking risk assessment performed?: Yes Alcohol Intake: current Alcohol Intake frequency: a few times a month Drug use: Current Sobriety Substance use type: former substance user Details: on Methadone Housing: apartment Do you feel safe at home: Yes Do you feel safe in your relationship?: Yes Additional Social history: Lives with mom/step dad, GF at times. Works at [employer]. Formerly incarcerated.
[2024-08-02] MEDS: Albuterol HFA 8 GM 60 PUFF INH IH (09:40)
--- NOTE | 2024-08-02 10:06 | DI.RAD_ITS ---
Exam(s) XR PORTABLE CHEST AP EXAM: XR PORTABLE CHEST AP CLINICAL HISTORY: re-assess chest 24 hrs after fall - r/o ptx/heladio. TECHNIQUE: 2D digital imaging was performed. COMPARISON: CR,XR XR WRIST LT COMPLETE from 08/01/2024 FINDINGS: Single AP portable view. Heart size is upper normal. The mediastinum is not widened. Increased lung markings bilaterally are most probably related to suboptimal inspiration.. This relat ed to the rib fractures described on yesterday's CT scan. There is no pneumothorax. No pleural effusions. IMPRESSION: No acute pulmonary findings on this single AP portable view of the chest.No pneumothorax. No obvious lung contusion nor pleural effusions. DATA REPOSITORY: RADIATION DOSE DELIVERED:
--- NOTE | 2024-08-02 11:26 | PDOC.CMDIS ---
Date of service: 08/02/24 Time of Service: 11:26 LACE Index Scoring Tool Questions: Length of Stay (in days): 1 Was the patient admitted via the E.D.?: Yes E.D. Visits: 1 Answers: Total Score: 5 Risk of Readmission: Low Risk Care Management Discharge Plan Reason for Hospitalization: rib fractures, pleural effusion Discharge Plan: Portillo will be discharged home today. He will follow up with his PCP and plan of care. He will transport via private vehicle by family. CM provided Portillo with a last does of Methadone letter. Patient/Family Education Needs: Review of discharge instructions, activity, limitation, and plan of care. Discuss Ask Me Three. SDOH Health Related Social Needs: No Data to Display
[2024-08-02 13:42] VITALS: BP 147/99; PULSE 124; RESP 20; TEMP 36.8; O2SAT 90
--- NOTE | 2024-08-02 15:18 | DSE_ITS ---
Date of service: 08/02/24 Time of Service: 15:18 DS: Diagnosis Discharge Diagnosis (1) Multiple closed fractures of ribs of both sides: Status: Acute (2) Pleural effusion: Status: Acute (3) Elevated WBCs: Status: Acute (4) Opioid use disorder, severe, on maintenance therapy: Status: Acute (5) Smoker: Status: Acute (6) Wrist pain, left: Status: Acute (7) Asthma: Status: Chronic (8) BMI 40.0-44.9, adult: (9) DVT prophylaxis: Status: Acute Discharge Plan Disposition Patient Disposition: Home Condition: Stable Discharge Details Reason For Visit: rib fractures, pleural effusion Admit Date/Time: 08/01/24 14:17 Admit Provider: Nghia Quach Attending Provider: Nghia Quach Primary Care Provider: None,None Hospital Course Hospital Course: 39 yo M with h/o opioid use disorder on methadone, smoking, BMI >40 who fell off 14 foot ladder onto his back while at work at [employer]. Fall was related to slip going down ladder, no concerns for sedation or impairment prior to fall. He did not have direct head trauma or LOC. CT head to pelvis and thoracic- lumbar spine demonstrated multiple rib fractures and a slight effusion, but otherwise negative with no flail chest. He was admitted with severe pain for pain management. General surgery consulted who wanted to follow up the possilbe tiny hemothorax with an CXR the next day, which did not show significant effusion or other new findings. He was initially mildly hypoxic related to pleuritic chest pain, but worked with respiratory therapy and was off oxygen. He did describe a history of asthma and chronic symptoms of obstructive sleep apnea. He should have PFTs when his rib fractures have recovered and sleep study evaluation as an outpatient. Smoking cessation was advised. He had elevated WBC and lactate after the acute injury, and creatinine up to 1.2. Lactate improved, WBC normalized, and creatinine decreased to 0.8 overnight with supportive care. Left wrist pain from the fall was also reported, and XR of tender area on ulnar wrist was suspicious for triquetrum fracture. He was given a rigid wrist brace. He should wear the brace for comfort and protection and follow up as an outpatient with Dr. Ray. PCP follow up: Follow up 1 week for pain management, respiratory status, and consideration of returning to work Order PFTs and sleep study when his respiratory status is baseline Home Meds and New Rx's Prescriptions: New cyclobenzaprine 10 mg Tablet 10 mg PO TID PRN PRNQty: 30 0RF sennosides-docusate sodium [Colace 2-In-1] 8.6-50 mg Tablet 1 tab PO BID Qty: 60 0RF acetaminophen 500 mg Tablet 1,000 mg PO QID Qty: 0 0RF albuterol sulfate [Ventolin HFA] 90 mcg/actuation Hfa Aerosol Inhaler 2 puff inhalation Q4H PRN PRNQty: 1 0RF oxycodone 10 mg Tablet 20 mg PO Q4H PRN PRNQty: 20 0RF naproxen 500 mg tablet 500 mg PO BID Qty: 50 0RF Continued methadone 10 mg/5 mL solution 185 mg PO DAILY Patient Comments: @ [facility], has take home doses Discharge Instructions Instructions: Rib fractures in adults Additional Instructions: Continue using the incentive spirometer (breathing device) at least 10 repititions 2-3 x per day try to avoid smoking until your breathing normalizes Wear the wrist brace to protect the small fracture in your wrist. You can take it off to shower/bathe. You should see orthopedics to check on this Referrals: Sergio Ray MD [ [facility]IAN] - (follow up triquetrum fracture after fall) Activity:: Activity as Tolerated Equipment/Supplies:: No Equipment Needed Diet:: As Tolerated Discharge Orders Discharge Orders: Discharge Order (Routine); Ordered 08/02/24 Ordered By: Nghia Quach DS: Summary Time Spent with Patient providing and/or coordinating discharge services: Greater than 30 minutes Status at Discharge Functional status at discharge: independent ambulation Overall status at discharge: patient is progressing back to baseline Mental Status: mental status grossly normal Speech and Movement: speech and movement normal Mood: congruent mood Affect: normal affect Quality:SDOH Health Related Social Needs: No Data to Display Exam Narrative Exam Narrative: GEN: Alert and oriented x 4, now sitting up in chair, looking a little more comfortable HEENT: Head atraumatic. LUNGS: CTAB with normal effort, no wheeze CV: regular, tachycardic, with no murmurs, gallops, or rubs. ABD: active bowel sounds, soft, nontender and nondistended. No masses. EXT: no cyanosis, clubbing, or edema. left wrist in brace MSK: No joint redness or swelling except left wrist as above. Tender along spine thoracic paraspinal muscles. NEURO: Intact movement and sensation to light touch of 4 extremities Psych Mental Status: mental status grossly normal Speech and Movement: speech and movement normal Mood: congruent mood Affect: normal affect DS: Data Vitals/I&O Vitals and I&O: Vital Signs Temperature 36.8 C 08/02/24 13:42 Temperature Source Temporal Artery Scan 08/02/24 13:42 Pulse 124 H 08/02/24 13:42 Pulse Rhythm Regular 08/01/24 15:19 Pulse 115 H 08/01/24 15:00 Respiratory Rate 20 08/02/24 13:42 Respiratory Effort Short of Breath 08/01/24 15:19 Respiratory Depth Shallow 08/01/24 15:19 Respiratory Pattern Tachypnea 08/01/24 15:19 Blood Pressure 147/99 H 08/02/24 13:42 Blood Pressure Mean 115 08/02/24 13:42 Blood Pressure Position Sitting 08/01/24 09:17 Pulse Oximetry 90 L 08/02/24 13:42 Oxygen Delivery Method Room Air 08/02/24 13:42 Oxygen Flow Rate 0 08/02/24 13:42 Pain Level 4 08/02/24 13:42 Comment RN notified 08/02/24 07:16 Comment 4L 08/01/24 10:01 Intake & Output 08/01/24 08/02/24 08/02/24 23:59 11:59 23:59 Intake Total 500 / 1100 1010 / 1010 Output Total 175 / 175 100 / 100 Balance 325 / 925 910 / 910 Weight 136 kg Intake: IV 500 / 1100 1010 / 1010 Output: Urine 175 / 175 100 / 100 Other: Urine Color Light Jacey Dark Jacey Urine Odor Strong Data Completed and Pending Labs on day of discharge: Labs from last 24 hours 08/02/24 07:23 WBC 9.80 RBC 4.90 Hgb 14.9 Hct 45.7 MCV 93 MCH 30.4 MCHC 32.6 RDW 13.2 Plt Count 198 MPV 10.1 Immature Gran % 0.8 Neutrophils % 73.2 Lymphocytes % 14.4 Monocytes % 9.0 Eosinophils % 2.1 Basophils % 0.5 Nucleated RBC % 0.0 Absolute Neutrophils 7.17 H Absolute Lymphocytes 1.41 Absolute Monocytes 0.88 H Absolute Eosinophils 0.21 Absolute Basophils 0.05 VBG Lactate 2.2 H* Sodium 137 Potassium 3.8 Chloride 99 Carbon Dioxide 30.9 Anion Gap 7.1 BUN 8 Creatinine 0.9 Est GFR (CKD-EPI 2020) 110.04 Glucose 142 H Calcium 8.9 PFSH All Active Problems (Updated 08/01/24 @ 18:20 by Nghia Quach) Asthma (Chronic) Wrist pain, left (Acute) Elevated WBCs (Acute) Pleural effusion (Acute) DVT prophylaxis (Acute) Smoker (Acute) Opioid use disorder, severe, on maintenance therapy (Acute) Multiple closed fractures of ribs of both sides (Acute) Medical History (Updated 08/01/24 @ 18:20 by Nghia Quach) BMI 40.0-44.9, adult Surgical History (Updated 08/01/24 @ 18:12 by Nghia Quach) H/O umbilical hernia repair Social History (Updated 08/01/24 @ 18:13 by Nghia Quach) Smoking/Tobacco Use Status: Current every day Tobacco Type: cigarettes and e- cigarettes Tobacco: How many years used: 28 Smoking risk assessment performed?: Yes Alcohol Intake: current Alcohol Intake frequency: a few times a month Drug use: Current Sobriety Substance use type: former substance user Details: on Methadone Housing: apartment Do you feel safe at home: Yes Do you feel safe in your relationship?: Yes Additional Social history: Lives with mom/step dad, GF at times. Works at [employer]. Formerly incarcerated. Time Spent with Patient Time Spent with Patient: 45-69 minutes Time was spent: preparing to see the patient(eg.review tests), obtaining and/or reviewing separately otained hiistory, ordering medications,tests, procedures, referring, communicating with other health healthcare or medical, indepentently interpreting results, counseling the patient and care coordination
--- NOTE | 2024-08-04 07:22 | NUR.NOTE ---
Access chart to print the demographic sheet to go with [facility] billing requisitions and to get diagnosis for wrist splint. Nursing Note:
== END 2024-08-02 15:48 | disposition home or self-care (01) ==
LOC: ER 15:08 → MS 08-02 09:52
PROVIDERS: Admitting Provider Family Medicine; Emergency Provider Physician Assistant; Responsible Provider Family Medicine; Visit Provider Family Medicine
DX: S22.43XA Multiple fractures of ribs, bilateral, initial encounter for closed fracture (principal); D72.829 Elevated white blood cell count, unspecified; F11.20 Opioid dependence, uncomplicated; R09.02 Hypoxemia; F17.210 Nicotine dependence, cigarettes, uncomplicated; M25.532 Pain in left wrist; J45.909 Unspecified asthma, uncomplicated; Z68.41 Body mass index [BMI] 40.0-44.9, adult; E66.01 Morbid (severe) obesity due to excess calories; W11.XXXA Fall on and from ladder, initial encounter; Y99.0 Civilian activity done for income or pay; G89.11 Acute pain due to trauma; R07.89 Other chest pain; J91.8 Pleural effusion in other conditions classified elsewhere; Z79.899 Other long term (current) drug therapy
CPT/HCPCS: 00123; 36415; 74177; 80048; 80053; 83690; 86850; 86900; 86901; 93005; 94640; 96365; 96375; 96376; 99285; 70450; 71045; 71260; 72125; 73110; 83605; 84484; 85025; 85610; 85730; 93010; 94664; 94760; 99223; 99239; G0378; J0131; J1171; J3490